=== PATIENT | female | born 1945 | race Caucasian/White ===

== ENCOUNTER → 2017-06-22 | Outpatient (CLI) | payer OTHER ==
[~2017-06-22] MED LIST: ATOR10TA88 PO; COEN50CA12 PO; ESZO1TAB6 PO; LEVE1TAB57 PO; MULT-190 PO
== END | disposition home or self-care (01) ==
LOC: C.RDSM 12:18
PROVIDERS: ATTEND Physical Medicine & Rehabilitation Sports Medicine
DX: M25.559 Pain in unspecified hip (principal)